=== PATIENT | female | born 1950 | race Caucasian/White ===

== ENCOUNTER 2018-11-19 14:27 | Emergency (ER) | payer MEDICARE ==
[~2018-11-19] VITALS: Ht 165.1 cm; Wt 86.4 kg
[2018-11-19 14:31] VITALS: BP 125/71
[2018-11-19] MEDS ORDERED: acetaminophen 325mg tablet PO ONE (16:00)
[2018-11-19] MEDS ORDERED: ibuprofen 200mg tablet PO ONE (16:00)
[2018-11-19] MEDS ORDERED: HYDR-4383 PO (16:15)
--- NOTE | 2018-11-19 16:16 | NUR ---
30 MIN OR LESS ETA- EMAN
[2018-11-19] MEDS ORDERED: HYDROcodone/acetaminophen 5mg/325mg tablet PO ONE (17:05)
== END 2018-11-19 17:00 | disposition home or self-care (01) ==
LOC: ER 14:27
DX: S82.392A Other fracture of lower end of left tibia, initial encounter for closed fracture (principal); S82.832A Other fracture of upper and lower end of left fibula, initial encounter for closed fracture; Z79.899 Other long term (current) drug therapy; W18.40XA Slipping, tripping and stumbling without falling, unspecified, initial encounter; Y93.89 Activity, other specified; Y92.828 Other wilderness area as the place of occurrence of the external cause; Y99.8 Other external cause status
CPT/HCPCS: 29515; 73590; 73610; 73630; 99284